=== PATIENT | male | born 1965 | race Caucasian/White ===

== ENCOUNTER 2023-04-04 14:59 | Emergency (ER) | payer OTHER, SELFPAY ==
[2023-04-04 15:05] VITALS: BP 159/99; PULSE 95; RESP 18; TEMP 36.9; O2SAT 94; BMI 62.9
--- NOTE | 2023-04-04 15:07 | ED_ITS ---
HPI - General Adult General Chief complaint: Abdominal Pain Stated complaint: FLANK PAIN, HX KIDNEY STONES Time Seen by Provider: 04/04/23 15:04 Source: patient Mode of arrival: Wheelchair Limitations: no limitations History of Present Illness HPI narrative: patient is a 57-year-old male who presents to the emergency department with suspected kidney stone. Patient states he had flank pain started earlier this week with pain radiating to the right groin. He reports associated urinary urgency and decreased urination. He has a history of kidney stones, Dr. Steiner is his urologist. He has had no fevers or vomiting but he does report nausea. No blood in his urine. He states he has passed three small stones and brought them with him, he states his pain did not improve with passing the stones and believes he may still have one in there . No medications taken prior to arrival. He drove himself to the Emergency Room. Related Data Previous Rx's Medication Instructions Recorded ketorolac 10 mg tablet 10 mg PO TID PRN pain #10 tabs 04/04/23 ondansetron 4 mg disintegrating 4 mg PO Q6H PRN nausea and 04/04/23 tablet vomiting #12 tabs Allergies Allergy/AdvReac Type Severity Reaction Status Date / Time diltiazem [From Cardizem] AdvReac Severe shortness Verified 04/04/23 15:08 of breath metoprolol AdvReac Severe shortness Verified 04/04/23 15:08 of breath lasix AdvReac Severe shortness Uncoded 04/04/23 15:08 of breath Review of Systems ROS Constitutional Denies: fever or chills Ears, nose, mouth, and throat Denies: throat pain Cardiovascular Denies: chest pain Respiratory Denies: shortness of breath or cough Gastrointestinal Reports: abdominal pain and nausea; Denies: vomiting Genitourinary Reports: urinary urgency and decreased urine ouput Musculoskeletal Reports: back pain Integumentary/Breast Denies: rash Neurological Denies: headache Exam Narrative Exam Narrative: Gen.: Awake, alert, morbidly obese man on the edge of the exam cart in no distress Head: Normocephalic, atraumatic ENT: Moist mucous membranes Respiratory: No respiratory distress Gastrointestinal: exam of the abdomen and flanks is severely limited by the patient's body habitus, he has no CVA tenderness, no appreciable abdominal tenderness or distention Extremities: Moves extremities equally Psych: Normal mood and affect Neuro: No focal neuro deficit Skin: Warm, dry, intact Constitutional Vital Signs, click to edit/add: Last Vital Signs Temp 98.4 F 04/04/23 15:05 Pulse 95 H 04/04/23 15:05 Resp 18 04/04/23 15:05 BP 159/99 H 04/04/23 15:05 Pulse Ox 94 L 04/04/23 15:05 O2 Del Method Room Air 04/04/23 15:05 Course Vital Signs Vital signs: Vital Signs Temperature 98.4 F 04/04/23 15:05 Pulse Rate 95 H 04/04/23 15:05 Respiratory Rate 18 04/04/23 15:05 Blood Pressure 159/99 H 04/04/23 15:05 Pulse Oximetry 94 L 04/04/23 15:05 Oxygen Delivery Method Room Air 04/04/23 15:05 Temperature 98.4 F 04/04/23 15:05 Pulse Rate 95 H 04/04/23 15:05 Respiratory Rate 18 04/04/23 15:05 Blood Pressure 159/99 H 04/04/23 15:05 Pulse Oximetry 94 L 04/04/23 15:05 Oxygen Delivery Method Room Air 04/04/23 15:05 Medical Decision Making MDM Narrative Medical decision making narrative: patient drove himself to the Emergency Room and does not have a ride home. He states no one can come to pick him up. He was treated with IV fluids, Zofran and Toradol. His lab studies are stable, although lactic acid was initially elevated. CT of the abdomen and pelvis without contrast shows the patient has no evidence of ureteral stone or hydronephrosis. There are renal stones with no other acute abnormalities. Repeat lactic acid is within normal limits. [facility] report shows that the patient has frequent narcotic prescriptions, typically from [facility]. He has had six prescriptions for narcotics over the last four weeks. No indication for additional narcotics at this time as the patient has no evidence of sepsis, no evidence of active ureteral stone or hydronephrosis and no urinary tract infection. He is discharged home with Toradol and Zofran. Follow-up with PCP and urology and return to the Emergency Room if symptoms change or worsen. Medical Records Medical records reviewed: Yes I reviewed the patient's medical records Lab Data Lab results reviewed: Yes I reviewed the patient's lab results Labs: Lab Results 04/04/23 04/04/23 04/04/23 Range/Units 15:10 15:20 16:24 WBC 13.2 H (4.0-11.0) 10^3/uL RBC 5.48 (4.70-6.10) 10^6/uL Hgb 12.0 L (14.0-18.0) g/dL Hct 41.1 L (42.0-54.0) % MCV 75.0 L (80.0-94.0) fL MCH 21.9 L (25.9-34.0) pg MCHC 29.2 L (29.9-35.2) g/dL RDW 18.4 H (11.0-15.0) % Plt Count 362 (150-450) 10^3/uL MPV 8.5 L (9.5-13.5) fL Neut % (Auto) 76.9 H (43.0-75.0) % Lymph % (Auto) 16.3 L (20.5-60.0) % [place] % (Auto) 5.1 (1.7-12.0) % Eos % (Auto) 0.6 L (0.9-7.0) % Baso % (Auto) 0.4 (0.2-2.0) % Neut # (Auto) 10.1 H (1.4-6.5) 10^3/uL Lymph # (Auto) 2.1 (1.2-3.8) 10^3/uL [place] # (Auto) 0.7 (0.3-0.8) 10^3/uL Eos # (Auto) 0.1 (0.0-0.7) 10^3/uL Baso # (Auto) 0.1 (0.0-0.1) 10^3/uL Abs Immat Gran (auto) 0.09 H (0.00-0.03) 10^3/uL Imm/Tot Granulo (auto) 0.7 H (0.0-0.5) % Sodium 139 (136-145) mmol/L Potassium 4.3 (3.5-5.1) mmol/L Chloride 103 (98-107) mmol/L Carbon Dioxide 24.3 (21.0-32.0) mmol/L Anion Gap 16.0 BUN 18.0 (7.0-18.0) mg/dL Creatinine 1.28 (0.70-1.30) mg/dL Est GFR ( Amer) >60 (>=60) Est GFR (Non-Af Amer) 58 L (>=60) BUN/Creatinine Ratio 14.1 Glucose 138 H (74-106) mg/dL Lactate 3.0 H* 1.5 (0.4-2.0) mmol/L Calcium 8.7 (8.5-10.1) mg/dL Total Bilirubin 0.2 (0.2-1.0) mg/dL AST 12 L (15-37) U/L ALT 17 (16-63) U/L Alkaline Phosphatase 132 H (46-116) U/L Total Protein 8.0 (6.4-8.2) g/dL Albumin 3.7 (3.4-5.0) g/dL Globulin 4.3 g/dL Albumin/Globulin Ratio 0.9 Urine Color Yellow (YELLOW) Urine Clarity Sl cloudy (CLEAR) Urine pH 6.0 (5.0-9.0) Ur Specific [place] 1.020 (1.005-1.025) Urine Protein Trace (NEG/TRACE) mg/dL Urine Glucose (UA) Negative (NEGATIVE) mg/dL Urine Ketones Trace A (NEGATIVE) mg/dL Urine Occult Blood Large A (NEGATIVE) Urine Nitrite Negative (NEGATIVE) Urine Bilirubin Negative (NEGATIVE) Urine Urobilinogen 0.2 (0.2-1.0) EU/dL Ur Leukocyte Esterase Negative (NEGATIVE) Urine RBC >100 A (0-2) #/HPF Urine WBC 2-5 A (NONE SEEN) #/HPF Ur Squamous Epith Cells Few A (NONE/RARE) #/LPF Urine Crystals None seen (None Seen) #/HPF Urine Bacteria Trace A (NONE SEEN) #/HPF Urine Casts None seen (NONE SEEN) #/LPF Urine Mucus Trace A (NONE SEEN) Ur Culture Indicated? No Imaging Data CT scan - abdomen: Attestation: I have reviewed the pertinent imaging results. Radiologist's impression: Procedure: CT abdomen pelvis wo con EXAM: CT abdomen pelvis wo con HISTORY: Kidney stones history right flank pain COMPARISON: None. TECHNIQUE: Axial CT imaging was performed through the abdomen and pelvis with intravenous contrast. Multiplanar reformats were performed. Dose reduction techniques were achieved by using automated exposure control and/or adjustment of mA and/or kV according to patient size and/or use of iterative reconstruction technique. FINDINGS: Image quality is compromised by patient body habitus, resulting in artifacts associated with torso contact with the scanner gantry. Lung bases: There are mild bibasilar infiltrates. GI upper: Surgical mia are noted along the greater curvature aspect of the stomach consistent with prior gastric sleeve surgery. Liver: Normal size and contour. Gallbladder: No significant abnormality. No cholelithiasis. Biliary system: No intra or extrahepatic biliary ductal dilatation. Pancreas: Unremarkable. Spleen: Normal size. Adrenal glands: Normal adrenal glands. Kidneys/ureters: Normal contours. No hydronephrosis or visible mass. Bilateral intrarenal calculi are demonstrated, at least 7 on the right, measuring up to 5 mm and at least one on the left, measuring 10 mm. No definite calculus is identified within either ureter, though portions of each ureter were difficult to definitively discern. Vessels: No aneurysmal dilatation of the aorta. Atherosclerotic disease is noted. Retroperitoneum: No lymphadenopathy. Small bowel: No wall thickening or dilatation. Colon: No wall thickening or dilatation. Appendix: Appendix is identified with normal appearance. Peritoneal cavity: No free fluid or pneumoperitoneum. Lower : Unremarkable. Bones:Multilevel spondylosis. No acute bony abnormality. Soft tissues: No acute finding. Additional findings: None. IMPRESSION: 1. Bilateral nonobstructing intrarenal calculi. No definite ureteral calculus is appreciated. 2. Mild bibasilar infiltrates, likely representing atelectasis. Electronically authenticated by: Lucio ERNANDEZ Date: 04/04/2023 16:15 Discharge Plan Discharge Chief Complaint: Abdominal Pain Clinical Impression: Acute right flank pain Patient Disposition: Home, Self-Care Time of Disposition Decision: 17:07 Condition: Good Prescriptions / Home Meds: New ketorolac 10 mg tablet 10 mg PO TID PRN (Reason: pain) Qty: 10 0RF ondansetron 4 mg tablet,disintegrating 4 mg PO Q6H PRN (Reason: nausea and vomiting) Qty: 12 0RF Instructions: Flank Pain (ED) Stand Alone Forms: Portal Instructions Referrals: Physician,Non-Staff, MD [Primary Care Provider] - 1 week
[2023-04-04] MEDS: ONDANSETRON PF 4 MG/2 ML VIAL IV (15:23)
[2023-04-04] MEDS: KETOROLAC TROMETHAMINE 30 MG/ML VIAL IVP (15:23)
[2023-04-04 15:28] LABS: Bilirubin Urine NEGATIVE (NEGATIVE); Blood Urine LARGE (NEGATIVE); Clarity Urine SL CLOUDY (CLEAR); Color Urine YELLOW (YELLOW); Glucose Urine UA NEGATIVE (NEGATIVE); Ketones Urine TRACE mg/dL (NEGATIVE); Leukocyte Esterase Urine NEGATIVE (NEGATIVE); Nitrite Urine NEGATIVE (NEGATIVE); Protein Urine TRACE mg/dL (NEG/TRACE); Urobilinogen Urine 0.2 EU/dL (0.2-1.0)
[2023-04-04 15:29] LABS: Basophils Absolute Auto 0.1 10^3/uL (0.0-0.1); Basophils Percent Auto 0.4 % (0.2-2.0); Eosinophils Absolute Auto 0.1 10^3/uL (0.0-0.7); Eosinophils Percent Auto 0.6 % (0.9-7.0); Hematocrit 41.1 % (42.0-54.0); Immature Granulocytes Abs Auto 0.09 10^3/uL (0.00-0.03); Immature Granulocytes Pct Auto 0.7 % (0.0-0.5); Lymphocytes Absolute Auto 2.1 10^3/uL (1.2-3.8); Lymphocytes Percent Auto 16.3 % (20.5-60.0); Mean Corpuscular HGB Conc 29.2 g/dL (29.9-35.2); Mean Corpuscular Hemoglobin 21.9 pg (25.9-34.0); Mean Platelet Volume 8.5 fL (9.5-13.5); Monocytes Absolute Auto 0.7 10^3/uL (0.3-0.8); Monocytes Percent Auto 5.1 % (1.7-12.0); Neutrophils Absolute Auto 10.1 10^3/uL (1.4-6.5); Neutrophils Percent Auto 76.9 % (43.0-75.0); Platelet Count 362 10^3/uL (150-450); Red Blood Count 5.48 10^6/uL (4.70-6.10); Red Cell Distribution Width 18.4 % (11.0-15.0); White Blood Count 13.2 10^3/uL (4.0-11.0)
[2023-04-04] MEDS: 0.9 % SODIUM CHLORIDE 1,000 ML 1000 ML IV (15:33)
[2023-04-04 15:36] LABS: Urine Microscopic Indicated YES
[2023-04-04 15:43] LABS: Alanine Aminotransferase 17 U/L (16-63); Albumin Globulin Ratio 0.9; Albumin Level 3.7 g/dL (3.4-5.0); Alkaline Phosphatase 132 U/L (46-116); Aspartate Amino Transferase 12 U/L (15-37); BUN Creatinine Ratio 14.1; Bilirubin Total 0.2 mg/dL (0.2-1.0); Calcium 8.7 mg/dL (8.5-10.1); Carbon Dioxide 24.3 mmol/L (21.0-32.0); Chloride 103 mmol/L (98-107); Estimated GFR (African America >60 (>=60); Estimated GFR (Non-African Ame 58 (>=60); Globulin 4.3 g/dL; Glucose 138 mg/dL (74-106); Potassium 4.3 mmol/L (3.5-5.1); Sodium 139 mmol/L (136-145)
[2023-04-04 16:01] LABS: Bacteria Urine TRACE #/HPF (NONE SEEN); Mucus Urine TRACE (NONE SEEN); RBC Urine >100 #/HPF (0-2)
[2023-04-04 16:02] LABS: Cast Seen? NONE SEEN #/LPF (NONE SEEN); Crystals Seen? None Seen #/HPF (None Seen); Squamous Epithelial Cell Urine FEW #/LPF (NONE/RARE); Urine Culture Indicated NO
[2023-04-04 16:45] LABS: Lactate/Lactic Acid 1.5 mmol/L (0.4-2.0)
[2023-04-04] MEDS: HYDROCODONE/ACETAMINOPHEN 5-325 MG TABLET 2 TAB PO (17:36)
[2023-04-04] MEDS: ONDANSETRON 4 MG RAPDIS TABLET SL (17:36)
== END 2023-04-04 17:38 | disposition home or self-care (01) ==
PROVIDERS: Physician Assistant; Emergency Provider Emergency Medicine
DX: R10.9 Unspecified abdominal pain (principal); Z87.442 Personal history of urinary calculi
CPT/HCPCS: 36415; 74176; 80053; 81003; 81015; 83605; 85025; 96374; 96375; 99285